=== PATIENT | female | born 2000 | race Caucasian/White ===

== ENCOUNTER 2019-05-12 01:05 | Emergency (ER) | payer BC ==
[2019-05-12] MEDS ORDERED: Sodium Chloride 0.9% 10 ML Syringe FLUSH PRN (01:24)
[2019-05-12] MEDS ORDERED: Ondansetron 4 MG/2 ML SDV IVPUSH ONE (01:24)
[2019-05-12] MEDS ORDERED: Lactated Ringers 1,000 ML IV SCH (01:30)
--- NOTE | 2019-05-12 01:45 | EDM.PDOC ---
ED HPI GENERAL MEDICAL PROBLEM - General Chief Complaint: Gastrointestinal Problem Stated Complaint: Nausea, Vomiting, Diarrhea Time Seen by Provider: 05/12/19 01:23 Source of Information: Reports: Patient History Limitations: Reports: No Limitations - History of Present Illness INITIAL COMMENTS - FREE TEXT/NARRATIVE: Patient reports nausea, vomiting and diarrhea for the last 2 hours. She has general abdominal cramping. Denies recent ill contact. Denies right upper or lower quadrant pain. Denies urinary frequency or blood in urine. NO blood in stools. Denies alcohol use. States she does have occasional pelvic pain which is not acute right now. Additional history reveals she has been previously tested for STI and was negative. Since then she has not been active. No history of ovarian cysts or endometriosis. Denies fever, chest pain, SOB. Onset: Today, Sudden across mid abdomen Pain Score (Numeric/FACES): 2 - Related Data Allergies Allergy/AdvReac Type Severity Reaction Status Date / Time No Known Allergies Allergy Verified 05/12/19 01:26 Home Meds: Home Meds . [No Known Home Meds] 05/12/19 [History] ED ROS GENERAL - Review of Systems Review Of Systems: See Below Constitutional: Reports: No Symptoms HEENT: Reports: No Symptoms Respiratory: Reports: No Symptoms Cardiovascular: Reports: No Symptoms Endocrine: Reports: No Symptoms GI/Abdominal: Reports: Abdominal Pain, Diarrhea, Nausea, Vomiting : Reports: No Symptoms Musculoskeletal: Reports: No Symptoms Skin: Reports: No Symptoms Neurological: Reports: No Symptoms Psychiatric: Reports: No Symptoms Hematologic/Lymphatic: Reports: No Symptoms Immunologic: Reports: No Symptoms ED EXAM, GI/ABD - Physical Exam Exam: See Below Exam Limited By: No Limitations General Appearance: Alert, WD/WN, No Apparent Distress Eyes: Bilateral: Normal Appearance, EOMI Ears: Normal TMs Nose: Normal Inspection, Normal Mucosa, No Blood Throat/Mouth: Normal Inspection, Normal Lips, Normal Teeth, Normal Gums, Normal Oropharynx, Normal Voice, No Airway Compromise Head: Atraumatic, Normocephalic Neck: Normal Inspection, Supple, Non-Tender, Full Range of Motion Respiratory/Chest: No Respiratory Distress, Lungs Clear, Normal Breath Sounds, No Accessory Muscle Use, Chest Non-Tender Cardiovascular: Normal Peripheral Pulses, Regular Rate, Rhythm, No Edema, No Gallop, No JVD, No Murmur, No Rub GI/Abdominal Exam: Normal Bowel Sounds, Soft, Non-Tender, No Organomegaly, No Distention, No Abnormal Bruit, No Mass, Pelvis Stable Back Exam: Normal Inspection, Full Range of Motion, NT Extremities: Normal Inspection, Normal Range of Motion, Non-Tender, Normal Capillary Refill, No Pedal Edema Neurological: Alert, Oriented, CN II-XII Intact, Normal Cognition, Normal Gait, Normal Reflexes, No Motor/Sensory Deficits Psychiatric: Normal Affect, Normal Mood Skin Exam: Warm, Dry, Intact, Normal Color, No Rash Lymphatic: No Adenopathy Course - Vital Signs Last Recorded V/S: Last Vital Signs Temp 35.6 C 05/12/19 01:05 Pulse 112 H 05/12/19 02:45 Resp 16 05/12/19 02:45 BP 128/81 05/12/19 01:05 Pulse Ox 97 05/12/19 02:45 - Orders/Labs/Meds Meds: Medications Discontinued Medications Generic Name Dose Route Start Last Admin Trade Name Freq PRN Reason Stop Dose Admin Lactated Ringer's 1,000 mls @ 999 mls/hr 05/12/19 01:30 05/12/19 01:35 Ringers, Lactated IV 999 mls/hr ASDIRECTED GABY Administration Ondansetron HCl 4 mg 05/12/19 01:24 05/12/19 01:38 Zofran IVPUSH 05/12/19 01:25 4 mg ONETIME ONE Administration Ondansetron HCl 1 packet 05/12/19 01:54 05/12/19 02:01 Take Home: Ondansetron Odt 4 Mg, 2 Tab Pack PO 05/12/19 01:55 1 packet ONETIME ONE Administration Sodium Chloride 10 ml 05/12/19 01:24 Saline Flush FLUSH ASDIRECTED PRN Keep Vein Open Departure - Departure Time of Disposition: 02:47 Disposition: Home, Self-Care 01 Condition: Good Clinical Impression: Gastroenteritis - Discharge Information *PRESCRIPTION DRUG MONITORING PROGRAM REVIEWED*: Not Applicable *COPY OF PRESCRIPTION DRUG MONITORING REPORT IN PATIENT TOMER: Not Applicable Instructions: Viral Gastroenteritis, Adult, [id number], Nausea and Vomiting, Adult, [id number] Referrals: PCP,Unobtain [Primary Care Provider] - Forms: ED Department Discharge Additional Instructions: Plan 1. Stay well hydrated 2. Take oral zofran as needed for nausea 3. When drinking water, take small sips. Advance your diet slowly from liquids to normal for you. 4. Follow up with primary care to manage any further symptoms - Problem List & Annotations (1) Gastroenteritis SNOMED Code(s): 55536641 Code(s): K52.9 - NONINFECTIVE GASTROENTERITIS AND COLITIS, UNSPECIFIED Status: Acute Priority: Low - Problem List Review Problem List Initiated/Reviewed/Updated: Yes - Assessment/Plan Assessment:: viral gastroenteritis Plan: Plan 1. Stay well hydrated 2. Take oral zofran as needed for nausea 3. When drinking water, take small sips. Advance your diet slowly from liquids to normal for you. 4. Follow up with primary care to manage any further symptoms
[2019-05-12] MEDS ORDERED: Take Home: Ondansetron 4 MG Tab.DIS, 2 Tab Pack PO ONE (01:54)
== END 2019-05-12 02:47 | disposition home or self-care (01) ==
LOC: VM.ED 01:05
DX: A08.4 Viral intestinal infection, unspecified (principal)
CPT/HCPCS: 96361; 96374; 99284; A9270; J2405; J7120

== ENCOUNTER 2021-02-26 16:10 | Emergency (ER) | payer OTHER, BC ==
[2021-02-26] MEDS ORDERED: Diphtheria,Pertussis(Acell),Tetanus Vaccine 0.5 ML Syringe IM ONE (16:55)
[2021-02-26] MEDS ORDERED: Lidocaine 1% with EPINEPHrine 1:100,000 20 ML MDV INFILT PRN (16:55)
--- NOTE | 2021-02-26 17:15 | EDM.PDOC ---
ED HPI GENERAL MEDICAL PROBLEM - General Chief Complaint: Laceration Stated Complaint: LACERATION TO FOREHEAD Time Seen by Provider: 02/26/21 16:44 Source of Information: Reports: Patient - History of Present Illness INITIAL COMMENTS - FREE TEXT/NARRATIVE: Traci Dawn is a 20 y/o female who comes to the ER after she stood up and hit her head on the corner of an air conditioner. She cut her scalp and it did bleed quite a bit. Her boyfriend drove her right to the ER when he saw all the blood. Treatments CERTIFIED HEALTH EDUCATION SPECIALIST: Reports: Dressing(s) Head Pain Score (Numeric/FACES): 4 - Related Data Allergies Allergy/AdvReac Type Severity Reaction Status Date / Time No Known Allergies Allergy Verified 02/26/21 16:49 Home Meds: Home Meds . [No Known Home Meds] 05/12/19 [History] Past Medical History - Past Health History Medical/Surgical History: Denies Medical/Surgical History - Infectious Disease History Infectious Disease History: Reports: None - Past Surgical History HEENT Surgical History: Reports: Eye Surgery Social & Family History - Tobacco Use Tobacco Use Status *Q: Never Tobacco User Review of Systems - Review of Systems Review Of Systems: See Below Constitutional: Reports: No Symptoms Eyes: Reports: No Symptoms Ears: Reports: No Symptoms Nose: Reports: No Symptoms Mouth/Throat: Reports: No Symptoms Respiratory: Reports: No Symptoms Cardiovascular: Reports: No Symptoms GI/Abdominal: Reports: No Symptoms Genitourinary: Reports: No Symptoms Musculoskeletal: Reports: No Symptoms Skin: Reports: Wound (scalp laceration) Neurological: Reports: No Symptoms Psychiatric: Reports: No Symptoms ED EXAM, GENERAL - Physical Exam Exam: See Below Exam Limited By: No Limitations General Appearance: Alert, WD/WN, No Apparent Distress (Adult female) Ears: Hearing Grossly Normal Nose: Normal Inspection Throat/Mouth: Normal Voice Head: Normocephalic Neck: Normal Inspection Respiratory/Chest: No Respiratory Distress GI/Abdominal: Soft (Female) Exam: Deferred Rectal (Female) Exam: Deferred Extremities: Normal Inspection, Normal Capillary Refill Neurological: Alert, Oriented, CN II-XII Intact, No Motor/Sensory Deficits Psychiatric: Normal Affect Skin Exam: Warm, Dry, Intact, Normal Color, Wound/Incision (Note 0.5cm irregular laceration gapping but not bleeding until manipulated.) Course - Vital Signs Text/Narrative:: [id number] The patient was seen by the MANAGER PARKING. The laceration on her scalp was repaired. See Procedure Note. Procedure Note Laceration Repair Following verbal consent of the patient, risks, benefits, and alternatives were reviewed. The wound on the scalp was prepped with Betadine. Lidocaine 1% with Eep-2ml was used for local anesthesia. One interrupted suture of 4-0 Vicryl was used for wound closure. Hemostasis obtained. Bacitracin applied to the wound. Wound care instructions were reviewed. The patient tolerated the procedure well. Last Tetanus was unknown. Tdap was given today. The patient was given discharge instructions and left the ER in stable condition. Last Recorded V/S: Last Vital Signs Temp 37.0 C 02/26/21 16:40 Pulse 91 02/26/21 16:40 Resp 16 02/26/21 16:40 BP 122/72 02/26/21 16:40 Pulse Ox 98 02/26/21 16:40 - Orders/Labs/Meds Orders: Active Orders 24 hr Category Date Time Status Vaccines to be Administered [RC] PER UNIT ROUTINE Care 02/26/21 16:55 Ordered Lidocaine 1% w/EPINEPHrine [Xylocaine 1% with Med 02/26/21 16:55 Ordered EPINEPHrine 1:100,000] 20 ml INFILT ONETIME PRN Medication Orders Lidocaine/Epinephrine (Lidocaine 1% With Epinephrine 1:100,000 20 Ml Mdv) 20 ml INFILT ONETIME PRN PRN Reason: Other Last Admin: 02/26/21 16:59 Dose: 20 ml Documented by: ENRRIQUE Meds: Medications Generic Name Dose Route Start Last Admin Trade Name Freq PRN Reason Stop Dose Admin Lidocaine/Epinephrine 20 ml 02/26/21 16:55 02/26/21 16:59 Lidocaine 1% With Epinephrine 1:100,000 20 Ml Mdv INFILT 20 ml ONETIME PRN Administration Other Discontinued Medications Generic Name Dose Route Start Last Admin Trade Name Freq PRN Reason Stop Dose Admin Diphtheria/Tetanus/Acell Pertussis 0.5 ml 02/26/21 16:55 02/26/21 17:00 Diphtheria,Pertussis(Acell),Tetanus Vaccine 0.5 Ml Syringe IM 02/26/21 16:56 0.5 ml .ONCE ONE Administration Departure - Departure Time of Disposition: 17:15 Disposition: Home, Self-Care 01 Condition: Good Clinical Impression: Accident in home, Need for Tdap vaccination Scalp laceration Qualifiers: Encounter type: initial encounter Qualified Code(s): S01.01XA - Laceration without foreign body of scalp, initial encounter - Discharge Information Instructions: Sutures, [place], or Adhesive Wound Closure, [id number], VIS, Tetanus, Diphtheria (Td); Tetanus, Diphtheria, Pertussis (Tdap) - CDC Forms: ED Department Discharge Sepsis Event Note (ED) - Evaluation Sepsis Screening Result: No Definite Risk - Focused Exam Vital Signs: Vital Signs Temp Pulse Resp BP Pulse Ox 02/26/21 16:40 37.0 C 91 16 122/72 98 - My Orders Last 24 Hours: My Active Orders 02/26/21 16:55 Vaccines to be Administered [RC] PER UNIT ROUTINE Lidocaine 1% w/EPINEPHrine [Xylocaine 1% with EPINEPHrine 1:100,000] 20 ml I NFILT ONETIME PRN - Assessment/Plan Last 24 Hours: My Active Orders 02/26/21 16:55 Vaccines to be Administered [RC] PER UNIT ROUTINE Lidocaine 1% w/EPINEPHrine [Xylocaine 1% with EPINEPHrine 1:100,000] 20 ml INFILT ONETIME PRN Assessment:: 1)Scalp Laceration 2)S/P Simple Laceration Repair 3)Accident in the Home 4)Tdap Immunization Plan: -Ibuprofen 200mg 3 tablets oral every 6 hours as needed for pain -Acetaminophen 325mg 2-3 tablets oral every 4-6 hours as needed for pain -Keep dressing to wound dry and intact for 24 hours, then you may wash the wound daily with soap and water. -Watch for signs of infection and seek care at the clinic or ER if needed -The sutures that were placed today will dissolve over the next 2-3 weeks, so you do not need to return to the clinic for removal. Allow them to dissolve and and do note attempt to pick or cut them out for at least 2 weeks. Be very careful when you comb or brush your hair so you do not rip them out, especially the first 5-7 days. -Your Tetanus was not updated at today's visit.
== END 2021-02-26 17:20 | disposition home or self-care (01) ==
LOC: VM.ED 16:10
DX: S01.01XA Laceration without foreign body of scalp, initial encounter (principal); Z23 Encounter for immunization; W26.8XXA Contact with other sharp object(s), not elsewhere classified, initial encounter; Y92.009 Unspecified place in unspecified non-institutional (private) residence as the place of occurrence of the external cause
CPT/HCPCS: 12001; 12011; 90471; 90715; 99282-25; 99283